=== PATIENT | female | born 1970 | race Caucasian/White ===

== ENCOUNTER → 2016-11-23 | Outpatient (CLI) | payer BC ==
[~2016-11-23] MED LIST: ATIVAN GENERIC0.5 MG PO; AUROBINDO OR; BUPROPION HCL75 MG PO; BUPROPION HYDR150 M1 PO; CITALOPRAM20 MG PO; CLONAZEPAM0.5 M1 PO; DIAZEPAM2 MG PO; DIAZEPAM5 MG PO; FLEXERIL10 MG PO; IBUPROFEN800 MG PO; LABETALOL 100M100 M1 PO; LEXAPRO 10 MG T10 MG PO; LOSARTAN POTAS100 MG PO; LOSARTAN POTASS50 MG PO; NICOTINE PATCH;21 MG TD; PRENATAL PLUS1 TA1 PO; PREVACID 30MG C30 M1 PO; RANITIDINE HCL150 MG PO; ROBAXIN 500 MG500 MG PO; SULFAMETHOXAZOL1 TA6 PO; VICODIN 5/500 T1 TAB PO
== END ==
LOC: RT 15:36
DX: F32.3 Major depressive disorder, single episode, severe with psychotic features (principal); F41.9 Anxiety disorder, unspecified; Z79.899 Other long term (current) drug therapy

== ENCOUNTER → 2016-12-31 | Outpatient (CLI) | payer BC ==
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
== END ==
LOC: RAD 14:21
DX: M54.2 Cervicalgia (principal); V89.2XXA Person injured in unspecified motor-vehicle accident, traffic, initial encounter